=== PATIENT | male | born 1980 | race Two or more races ===

== ENCOUNTER 2024-09-10 21:01 | Emergency (ER) | payer OTHER ==
[~2024-09-10] VITALS: Ht 170.2 cm; Wt 82.7 kg
[2024-09-10 21:45] LABS: Urine Bacteria None Seen /hpf (None Seen)
--- NOTE | 2024-09-10 21:47 | ED.PDOC ---
GI ASSESSMENT HPI Comments 43-year-old male who came to ER for right-sided upper abdominal pain. Patient diagnosed to have fatty liver disease, and was advised diet modification. For the past few hours, patient has been experiencing aching, constant, right upper quadrant abdominal pain, radiating down his right flank. Patient states he had a similar pain before with fatty liver disease. Noted to be nauseated but denies any vomiting or changes in bowel habits or urinary symptoms. Denies any history of abdominal surgeries. Vital signs were stable. Chief Complaint: Abdominal Pain Time Seen by MD: 21:46 Reviewed Notes: Nurses Notes Allergies: Coded Allergies: NO KNOWN ALLERGIES (Unverified , 09/10/24) Information Source: Patient Mode of Arrival: Ambulatory Timing: Hours Duration: Since onset Prehospital treatment: None Quality: Aching Vomitus: None Stool: Normal Severity: Moderate Recent: None Recent Hx of: Liver Disease Pain Location: RUQ Modifying Factors: Nothing Associated sign and symptoms: Nausea, Abdominal Pain Past Medical History PAST MEDICAL HISTORY: Liver Surgical History: Denies all surgeries Family History Family History: Reviewed,noncontributory to illness Social History Smoker: Non-Smoker Alcohol: Denies ETOH Use Drugs: Denies Drug Use Lives In: Home Constitutional: denies: chills, diaphoresis, fatigue, fever, malaise, sweats, weakness, others EENTM: denies: blurred vision, double vision, ear bleeding, ear discharge, ear drainage, ear pain, ear ringing, eye pain, eye redness, hearing loss, mouth pain, mouth swelling, nasal discharge, nose bleeding, nose congestion, nose pain, photophobia, tearing, throat pain, throat swelling, voice changes, others Respiratory: denies: cough, hemoptysis, orthopnea, SOB at rest, shortness of breath, SOB with excertion, stridor, wheezing, others Cardiovascular: denies: chest pain, dizzy spells, diaphoresis, Dyspnea on exertion, edema, irregular heart beat, left arm pain, lightheadedness, palpitations, PND, syncope, others Gastrointestinal: reports: abdominal pain, nausea; denies: abdomen distended, blood streaked bowels, constipated, diarrhea, dysphagia, difficulty swallowing, hematemesis, melena, poor appetite, poor fluid intake, rectal bleeding, rectal pain, vomiting, others Genitourinary: reports: flank pain; denies: burning, dysuria, frequency, hematuria, incontinence, penile discharge, penile sore, pain, testicle pain, testicle swelling, urgency, others Neurological: denies: dizziness, fainting, headache, left sided numbness, left sided weakness, numbness, paresthesia, pre-existing deficit, right sided numbness, right sided weakness, seizure, speech problems, tingling, tremors, weakness, others Musculoskeletal: denies: back pain, gout, joint pain, joint swelling, muscle pain, muscle stiffness, neck pain, others Integumetry: denies: bruises, change in color, change in hair/nails, dryness, laceration, lesions, lumps, rash, wounds, others Allergic/Immunocompromised: denies: Difficulty Healing, Frequent Infections, Hives, Itching, others Hematologic/Lymphatic: denies: anemia, blood clots, easy bleeding, easy bruising, swollen glands, others Endocrine: denies: excessive hunger, excessive sweating, excessive thirst, excessive urination, flushing, intolerance to cold, intolerance to heat, unexplained weight gain, unexplained weight loss, others Psychiatric: denies: anxiety, bipolar disorder, depression, hopeless, panic disorder, schizophrenia, sleepless, suicidal, others Physical Exam General Appearance: Moderate Distress ([id number] distress due to right upper quadrant pain.), Normal HEENT: Normal ENT Inspection, Pharynx Normal, TMs Normal Neck: Full Range of Motion, Non-Tender, Normal, Normal Inspection Respiratory: Chest Non-Tender, Lungs Clear, No Accessory Muscle Use, No Respiratory Distress, Normal Breath Sounds Cardiovascular: No Edema, No JVD, No Murmur, No Gallop, Normal Peripheral Pulses, Regular Rate/Rhythm Breast Exam: Deferred Gastrointestinal: No Pulsatile Mass, Normal Bowel Sounds, Soft, Tenderness (Diffuse tenderness to palpation throughout the right upper quadrant the liver border. Unable to appreciate any definitive hepatomegaly. No signs of trauma.) Genitalia: Deferred Pelvic: Deferred Rectal: Deferred Extremities: No calf tenderness, Normal capillary refill, Normal inspection, Normal range of motion, Non-tender, No pedal edema Musculoskeletal : Apperance: Normal Neurologic: Alert, No Motor Deficits, Normal Affect, Normal Mood, No Sensory Deficits Cerebellar Function: Normal Reflexes: Normal Skin: Dry, Normal Color, Warm Lymphatic: No Adenopathy Was a procedure done? Was a procedure done?: No GI differential Dx Differential Diagnosis: UTI, Other (Hepatic steatosis) X-Ray, Labs, Meds, VS Vital Signs Date Time Temp Pulse Resp B/P (MAP) Pulse Ox O2 Delivery O2 Flow Rate FiO2 09/10/24 23:25 73 14 139/89 09/10/24 21:22 97.6 65 18 126/90 (102) 95 Lab Test 09/10/24 21:24 Range/Units Urine Color Light-yellow Yellow Urine Clarity Clear Clear Urine pH 6.0 5.0-9.0 Urine Specific [place] 1.022 1.001-1.035 Urine Protein Negative Negative Urine Ketones Negative Negative Urine Blood Negative Negative /uL Urine Nitrite Negative Negative Urine Bilirubin Negative Negative Urine Urobilinogen Normal Negative mg/dL Urine Leukocyte Esterase Negative Negative /uL Urine RBC 1 0 - 3 /hpf Urine WBC <1 0 - 3 /hpf Urine Squamous Epithelial Cells None seen <5 /hpf Urine Bacteria None seen None Seen /hpf Urine Glucose Normal Normal mg/dL Current Medications Medications (Trade) Dose Ordered Sig/Daniela Route Start Time Stop Time Status Last Admin Hydromorphone HCl (Dilaudid Injection) 0.5 mg ONCE ONCE IM 09/10/24 21:45 09/10/24 21:46 DC 09/10/24 23:25 Ondansetron HCl (Zofran Po) 4 mg ONCE ONCE PO 09/10/24 21:45 09/10/24 21:46 DC 09/10/24 23:23 X-Ray, Labs, Meds, VS Comment All studies performed the ED were evaluated by me personally. Urinalysis was unremarkable for any UTI. Spent time at initial evaluation discussing the patient's condition with him. Advised that he had just received imaging studies confirming his hepatic steatosis. Advised patient that I will give him some p ain medication to address his pain concerns and that he needs to follow up with his primary care provider for discussions related to his fatty liver issues as well as instituting lifestyle modifications including alcohol cessation, no acetaminophen use and approved diet. Time of 1ST Reevaluation: 23:30 Reevaluation 1ST: Improved Consultation: PCP, Other (Hepatology) Patient Education/Counseling: Diagnosis, Treatment Family Education/Counseling: Diagnosis, Treatment, No Family Present Departure 1 Departure Time of Disposition: 23:30 Impression: Primary Impression: Hepatic steatosis Disposition: 01 HOME / SELF CARE / HOMELESS Condition: Stable Additional Instructions: Advised pain medication as needed additionally, patient needs to follow up with his primary care provider for continued conversation is related to his fatty liver concerns and possible hepatology referral. e-Prescriptions Ondansetron Odt 4MG Tab (ZOFRAN PO) 4 Mg Tb 4 MG PO Q6HP PRN, #15 TAB ODT TAB-DISSOLVE IN MOUTH, THEN SWALLOW Prov: ALISTAIR PELAYO PAC 09/10/24 Tramadol Hcl (Tramadol Hcl) 50 Mg Tab 50 MG PO Q8HP PRN, #15 TAB Prov: ALISTAIR PELAYO PAC 09/10/24 Discharged With: Self, Friend Critical Care Note Critical Care Time?: No Stability Stability form required: No Heart Score Heart Score: Heart Score Response (Comments) Value History N/A 0 EKG N/A 0 Age N/A 0 Risk Factors N/A 0 Troponin N/A 0 Total 0 I personally scribed for ALISTAIR PELAYO PAC ([email or web address]) on 09/10/24 at 21:47. Electronically submitted by Taurus Souza ([email or web address]). ALISTAIR PELAYO PAC Sep 10, 2024 21:47
[2024-09-10 21:59] LABS: Urine Blood Negative /uL (Negative); Urine Clarity Clear (Clear); Urine Color Light-Yellow (Yellow); Urine Protein, UAD Negative (Negative); Urine Specific Gravity 1.022 (1.001-1.035); Urine Urobilinogen Normal (Negative); Urine WBC <1 /hpf (0 - 3)
[2024-09-10] MEDS: ONDANSETRON ODT 4 MG TAB PO ONE (23:23)
[2024-09-10] MEDS: HYDROmorphone HCL 2 MG/ML VL/or syr IM ONE (23:25)
[2024-09-10] MEDS ORDERED: ZOFR4T PO (23:32)
[2024-09-10] MEDS ORDERED: TRAM50TA2 PO (23:32)
[2024-09-10 23:34] VITALS: BP 139/89; PULSE 73; RESP 14; TEMP 97.8; O2SAT 97
== END 2024-09-10 23:44 | disposition home or self-care (01) ==
LOC: ER 21:08
DX: K76.0 Fatty (change of) liver, not elsewhere classified (principal)
CPT/HCPCS: 81001; 96372; 99283; J1171; Q0162